=== PATIENT | female | born 1985 | race Hispanic/Latino ===

== ENCOUNTER 2022-09-21 11:22 | Emergency (ER) | payer SELFPAY ==
--- OUTSIDE RECORDS SUMMARY | 2022-09-21 11:26 | XMS REPORT | Continuity of Care Document ---
:[address] [facility] t Address [address] [facility]. [address] [place] [address] Care Team Providers Name Role Phone Srinivas Moses Primary Care Physician [phone] CRISTAL BARRETO Attending Clinician Unavailable Cristal Yañez Attending Clinician [phone] RONALDO FREDERICK Attending Clinician Unavailable Delgado Abbasi MD Attending Clinician Shola Lion MD Attending Clinician Doctor Unassigned, [place] Attending Clinician Unavailable FERNY TONG Attending Clinician Unavailable Ferny Tong MD Attending Clinician SRINIVAS SEO Attending Clinician Unavailable Lab, [facility] Attending Clinician Unavailable Srinivas Moses Attending Clinician ALBERT CARDOSO Attending Clinician Unavailable ALBERT CARDOSO Attending Clinician Unavailable Provider, [facility] Temp Attending Clinician Unavailable 5, [facility] Attending Clinician Unavailable Radha Taylor MD Attending Clinician RADHA TAYLOR Attending Clinician Unavailable RADHA TAYLOR Attending Clinician Unavailable JOHN HELLER Attending Clinician Unavailable UNKNOWN, ATTENDING Attending Clinician Unavailable RONALDO FREDERICK Admitting Clinician Unavailable FERNY TONG Admitting Clinician Unavailable Ferny Tong MD Admitting Clinician Payers Payer Name Policy Type Policy Number Effective Date Expiration Date S ource [employer]ILY [employer]ING [id number] 2022 [place] 0-100% 00:00:00 JUAN ALBERTO MOM CHIP [id number] 2022 JAMES LOW FPL 00:00:00 TMHP [id number] 2022 2022 EMERGENCY 00:00:00 00:00:00 MEDICAID Problems Condition Condition Condition Status Onset Resolution Last Treating Co mments Source Name Details Category Date Date Treatment Clinician Date Other Other Disease Active 2021-07 Univers general general 0-17 [place]y of counseling [place] and advice and advice 00 Md dical for [facility] Branch contracept contracept inels niels management management Well woman Well woman Disease Active U nivers exam exam 9-19 ity of 00:00: [place] 00 [facility] Disease Active Univers (spontaneo (spontaneo 8-16 it y of us vaginal [place] vaginal [place] delivery[place] delivery[place] 00 [facility] Single Single Disease Active Univers live live 8-16 it y of 00:00: [facility] Acute Acute Disease Active Univers blood loss blood loss 8-16 it y of anemia anemia 00:00: [facility] Obesity Obesity Disease Active Univers (BMI (BMI 8-14 ity of 30-39.9) 30-39.9) 00:00: 00 [facility] 37 weeks 37 weeks Disease Active Unive rs gestation gestation 8-12 ity of of of 00:00: [place] 00 [facility] Heartburn Heartburn Disease Active Uni vers during during 8-04 [place] [facility] Supervisio Supervisio Disease Active U nivers n of n of 7-08 ity of high-risk high-risk 00:[place] [facility] Obesity in Obesity in Disease Active U nivers 7-08 ity of 00:00: [place] 00 [facility] Multiparit Multiparit Disease Active U nivers y y 7-08 ity of 00:00: [place] [facility] Cervical Cervical Disease Active Overview: Un lorenza Papanicola Papanicola 01-23 Formattin ity of ou smear ou smear 00:00: g of this [place] negative negative 00 note Medica l within within might be Branch last 12 last 12 different months months from the original. 04/2021 NIL pap with neg hpv. See care everywher e Pruritus Pruritus Disease Active Unive rs 7-08 ity of 00:00: [place] 00 Medical Branch Pain of Pain of Disease Active Univers round round 01-23 ity of ligament ligament 00:00: [place] during during 00 Medical Bran ch Allergies, Adverse Reactions, Alerts Allergy Allergy Status Severity Reaction(s) Onset Inactive Treating Comm ents Source Name Type Date Date Clinician NO KNOWN Drug Active Univers ALLERGIE Class ity of S [facility] Social History Social Habit Start Date Stop Date Quantity Comments Source ASSERTION 2021-06-26 [facility] 00:00:00 [facility] Alcohol intake 2022-05-04 2022-05-04 Ex-drinker [facility] 00:00:00 00:00:00 (finding) [facility] Exposure to 2022-03-27 2022-04-06 Not sure [facility] SARS-CoV-2 00:00:00 13:08:00 [facility] (event) [place] Tobacco use and 2022-02-19 2022-02-19 Smokeless tobacco Un iversity of exposure 00:00:00 00:00:00 non-user [facility] Sex Ass[birth year] At [birth year] Universit y of 00:00:00 00:00:00 [facility] Smoking Status Start Date Stop Date Source Never smoked tobacco [facility] [place] Medications Ordered Filled Start Stop Current Ordering Indication Dosage Frequency Signature Comments Components Source Medication Medication Date Date Medication? Clinician (SIG) Name Name Yes [id number] 1{tbl} Take 1 Univers [id number] 8-16 tablet by ity of fum-folic 00:[place] the Medical 27 mg iron- morning. Bran ch 1 mg folic tablet docusate Yes [id number] 200mg Take 2 U nivers 100 mg 8-16 capsules ity of capsule 00:00: by mouth [place] 00 once daily Medical as needed Branch for Constipati on. ferrous Yes [id number] 325mg Take 1 Un lorenza sulfate 325 8-16 tablet by ity of mg (65 mg 00:00: [place] iron) 00 the Medical tablet morning Branch and 1 tablet in the evening. ibuprofen 0 Yes [id number] 600mg Take 1 Univers 600 mg 8-16 tablet by ity of tablet 00:00: mouth [place] 00 every 6 Medical (six) Branch hours as needed (Pain). Take with food or milk. 0 Yes [id number] 1{tbl} Take 1 Univers [id number] 8-16 tablet by ity of fum-folic 00:00: [place] () 00 the Medical 27 mg iron- morning. Bran ch 1 mg folic tablet docusate 0 Yes [id number] 200mg Take 2 U nivers 100 mg 8-16 capsules ity of capsule 00:00: by mouth [place] 00 once daily Medical as needed Branch for Constipati on. ferrous 0 Yes [id number] 325mg Take 1 Un lorenza sulfate 325 8-16 tablet by ity of mg (65 mg 00:00: [place] iron) 00 the Medical tablet morning Branch and 1 tablet in the evening. ibuprofen 0 Yes [id number] 600mg Take 1 Univers 600 mg 8-16 tablet by ity of tablet 00:00: mouth [place] 00 every 6 Medical (six) Branch hours as needed (Pain). Take with food or milk. 0 Yes [id number] 1{tbl} Take 1 Univers [id number] 8-16 tablet by ity of fum-folic 00:00: [place] () 00 the Medical 27 mg iron- morning. Bran ch 1 mg folic tablet docusate 0 Yes [id number] 200mg Take 2 U nivers 100 mg 8-16 capsules ity of capsule 00:00: by mouth [place] 00 once daily Medical as needed Branch for Constipati on. ferrous 0 Yes [id number] 325mg Take 1 Un lorenza sulfate 325 8-16 tablet by ity of mg (65 mg 00:00: [place] iron) 00 the Medical tablet morning Branch and 1 tablet in the evening. ibuprofen 0 Yes [id number] 600mg Take 1 Univers 600 mg 8-16 tablet by ity of tablet 00:00: mouth [place] 00 every 6 Medical (six) Branch hours as needed (Pain). Take with food or milk. Yes [id number] 1{tbl} Take 1 Univers [id number] 8-16 tablet by ity of fum-folic 00:00: mouth in [facility] s ([facility]) 00 the Medical 27 mg iron- morning. Bran ch 1 mg folic tablet docusate Yes [id number] 200mg Take 2 U nivers 100 mg 8-16 capsules ity of capsule 00:00: by mouth [place] 00 once daily Medical as needed Branch for Constipati on. ferrous Yes [id number] 325mg Take 1 Un lorenza sulfate 325 8-16 tablet by ity of mg (65 mg 00:00: mouth in [facility] iron) 00 the Medical tablet morning Branch and 1 tablet in the evening. ibuprofen Yes [id number] 600mg Take 1 Univers 600 mg 8-16 tablet by ity of tablet 00:00: mouth [place] 00 every 6 Medical (six) Branch hours as needed (Pain). Take with food or milk. Yes [id number] 1{tbl} Take 1 Univers [id number] 8-16 tablet by ity of fum-folic 00:00: mouth in [facility] ([facility]) 00 the Medical 27 mg iron- morning. Bran ch 1 mg folic tablet docusate Yes [id number] 200mg Take 2 U nivers 100 mg 8-16 capsules ity of capsule 00:00: by mouth [place] 00 once daily Medical as needed Branch for Constipati on. ferrous Yes [id number] 325mg Take 1 Un lorenza sulfate 325 8-16 tablet by ity of mg (65 mg 00:00: mouth in [facility] iron) 00 the Medical tablet morning Branch and 1 tablet in the evening. ibuprofen Yes [id number] 600mg Take 1 Univers 600 mg 8-16 tablet by ity of tablet 00:00: mouth [place] 00 every 6 Medical (six) Branch hours as needed (Pain). Take with food or milk. rho(D) Yes 300ug 300 mcg, Univer s immune 8-15 Intramuscu ity of globulin 18:28: lar, ONCE, [place] (RHOGAM) 05 For 1 Medical syringe 300 dose, Branch mcg Conditiona l, Routine HYDROcodone 2021-0 Yes 1{tbl} 1 tablet, Univers -acetaminop 8-15 Oral, ity of hen (NORCO 18:28: Q6HPRN, [place] 5) 5-325 mg 02 Starting Medi leanna tablet 1 on Wed Branch tablet 03/02/22 at 1328, Until Discontinu ed, Routine, Pain (scale 7-10) ibuprofen 2021-0 Yes 600mg 600 mg, Univ ers (IBU) 8-15 Oral, ity of tablet 600 18:28: Q6HPRN, [place] mg 01 Starting Medical on Wed Branch 03/02/22 at 1328, Until Discontinu ed, Routine, Pain (scale 4-6) acetaminoph 2021-0 Yes 650mg 650 mg, Un lorenza en 8-15 Oral, ity of (TYLENOL) 18:28: Q6HPRN, [place] tablet 650 01 Starting Medic al mg on Wed Branch 03/02/22 at 1328, Until Discontinu ed, Routine, Pain (scale 1-3) diphenhydrA 2021-0 Yes 25mg 25 mg, Univ ers MINE 8-15 Oral, ity of (BENADRYL) 18:28: Q6HPRN, [place] tablet 25 01 Starting Medica l mg on Wed Branch 03/02/22 at 1328, Until Discontinu ed, Routine, Sleep, Itching ondansetron 2021-0 Yes 4mg 4 mg, Slow Univers (ZOFRAN 8-15 IV Push, ity of (PF)) 18:28: Q8HPRN, [place] injection 4 01 Starting Medi leanna mg on Wed Branch 03/02/22 at 1328, Until Discontinu ed, Routine, Nausea and Vomiting (N/V) simethicone 2021-0 Yes 160mg 160 mg, Un lorenza (GAS RELIEF 8-15 Oral, ity of (SIMETHICON 18:28: PC+HSPRN, [place] E)) 01 Starting Medical chewable on Wed Branch tablet 160 03/02/22 at mg 1328, Until Discontinu ed, Routine, Gas docusate 2021-0 Yes 200mg 200 mg, Unive rs (COLACE) 8-15 Oral, ity of capsule 200 18:28: QDAILYPRN, [place] mg 01 Starting Medical on Wed Branch 03/02/22 at 1328, Until Discontinu ed, Routine, Constipati on magnesium Yes 30mL 30 mL, Univer s hydroxide 03-02 Oral, ity of (MILK OF 18:28: QDAILYPRN, [place] MAGNESIA) 01 Starting Medica l 400 mg/5 mL on Wed Branch suspension 03/02/22 at 30 mL 1328, Until Discontinu ed, Routine, Constipati on benzocaine- Yes Topical, Un lorenza menthol 03-02 PRN, ity of (DERMOPLAST 18:28: Starting [place] ) 20-0.5 % 01 on Wed Medical topical 03/02/22 at Branch spray 1328, Until Discontinu ed, Routine, Perineum discomfort ropivacaine 2021- No Epidural, Univers 0.2 % 03-02 ONCE INTRA ity of (NAROPIN 13:20: 16:23 PROCEDURE, [place] (PF)) 00 :41 Starting Medical epidural on Wed [place] infusion 03/02/22 at 0820, Until Wed03/02/22 at 1123, Routine, Intra-op lidocaine-e 2021- No Epidural, Univers pinephrine 03-02 ONCE INTRA it y of (XYLOCAINE 13:15: 16:23 PROCEDURE, [place] W/EPINEPHRI 00 :41 Starting Medi leanna NE) 1.5 on Wed [place] %-1:200,000 03/02/22 at injection 0815, Until Wed03/02/22 at 1123, Routine, Intra-op butorphanol 2021- No 1mg 1 mg, IV U nivers (STADOL) 03-02 Push, ity of injection 1 11:45: 10:45 ONCE, 1 [place] mg 00 :00 dose, On Medical [facility] Branch 03/02/22 at 0645, Routine sodium 2021- No 30mL 30 mL, Univers citrate-cit 03-02 Oral, ity of hermelinda acid 11:44: 12:40 PRE-PROCED [place] (BICITRA) 14 :00 URE ONCE, Medic al 500-334 1 dose, Branch mg/5 mL Starting solution 30 on Mon mL 03/02/22 at 0644, Until 03/02/22 at 0740, Routine, Surgery/Pr ocedure [id number] IV 2021- No 1000mL at 125 Uni vers infusion 03-01 08-15 mL/hr, IV ity o f 1,000 mL 23:00: 18:28 Infusion, [place] 00 :04 CONTINUOUS Medical , Starting Branch on 03/01/22 at 1800, Until 03/02/22 at 1328, Routine PNV 67-iron Yes [id number] 1{each} Take 1 Univers ps-folate 7-08 Each by ity of no.1-dha 00:00: mouth [place] (VITAFOL 00 daily. Medical ULTRA) 29 Branch mg iron- 1 mg-200 mg Cap PNV 67-iron Yes [id number] 1{each} Take 1 Univers ps-folate 7-08 Each by ity of no.1-dha 00:00: mouth [place] (VITAFOL 00 daily. Medical ULTRA) 29 Branch mg iron- 1 mg-200 mg Cap PNV 67-iron Yes [id number] 1{each} Take 1 Univers ps-folate 7-08 Each by ity of no.1-dha 00:00: mouth [place] (VITAFOL 00 daily. Medical ULTRA) 29 Branch mg iron- 1 mg-200 mg Cap PNV 67-iron Yes [id number] 1{each} Take 1 Univers ps-folate 7-08 Each by ity of no.1-dha 00:00: mouth [place] (VITAFOL 00 daily. Medical ULTRA) 29 Branch mg iron- 1 mg-200 mg Cap PNV 67-iron Yes [id number] 1{each} Take 1 Univers ps-folate 7-08 Each by ity of no.1-dha 00:00: mouth [place] (VITAFOL 00 daily. Medical ULTRA) 29 Branch mg iron- 1 mg-200 mg Cap PNV 67-iron 0 2021- No [id number] 1{each} Take 1 Univers ps-folate 7-08 08-16 Each by ity of no.1-dha 00:00: 00:00 mouth [place] (VITAFOL 00 :00 daily. Medical ULTRA) 29 Branch mg iron- 1 mg-200 mg Cap Immunizations Ordered Filled Immunization Date Status Comments Sourc e Immunization Name Name TDAP 2022-01-23 Completed University of 00:00:00 [place] [facility] TDAP 2022-01-23 Completed University of 00:00:00 [place] [facility] TDAP 2022-01-23 Completed University of 00:00:00 [place] [facility] TDAP 2022-01-23 Completed University of 00:00:00 [place] [facility] TDAP 2022-01-23 Completed University of 00:00:00 [place] [facility] TDAP 2022-01-23 Completed University of 00:00:00 [place] [facility] TDAP 2022-01-23 Completed University of 00:00:00 [facility] Branch TDAP 2022-01-23 Completed University of 00:00:00 [place] [facility] TDAP 2022-01-23 Completed University of 00:00:00 [facility] Branch TDAP 2022-01-23 Completed University of 00:00:00 [facility] Vital Signs Vital Name Observation Time Observation Value Comments Source Systolic blood 2022-05-04 16:29:00 121 mm[Hg] Univer sity of pressure [facility] Diastolic blood 2022-05-04 16:29:00 78 mm[Hg] Unive rsity of [facility] Heart rate 2022-05-04 16:29:00 64 /min [facility] Body temperature 2022-05-04 16:29:00 36.44 Ana M [facility] Respiratory rate 2022-05-04 16:29:00 20 /min [facility] Body height 2022-05-04 16:29:00 160 cm [facility] Body weight 2022-05-04 16:29:00 78.744 kg [facility] BMI 2022-05-04 16:29:00 30.75 kg/m2 [facility] Systolic blood 2022-04-06 18:09:00 119 mm[Hg] Univer sity of pressure [facility] Diastolic blood 2022-04-06 18:09:00 73 mm[Hg] Unive rsity of pressure [facility] Heart rate 2022-04-06 18:09:00 67 /min [facility] Body temperature 2022-04-06 18:09:00 36.89 Ana M Univ ersity of [place] [facility] Respiratory rate 2022-04-06 18:09:00 16 /min Univ ersity of [place] [facility] Body height 2022-04-06 18:09:00 160 cm Universi ty of [place] [facility] Body weight 2022-04-06 18:09:00 78.047 kg Universi ty of [place] [facility] BMI 2022-04-06 18:09:00 30.48 kg/m2 Universi ty of [place] [facility] Systolic blood 2022-03-03 14:34:00 126 mm[Hg] Univer sity of pressure [place] [facility] Diastolic blood 2022-03-03 14:34:00 77 mm[Hg] Unive rsity of pressure [place] [facility] Heart rate 2022-03-03 14:34:00 64 /min Universi ty of [place] [facility] Body temperature 2022-03-03 14:34:00 36.56 Ana M Univ ersity of [place] [facility] Respiratory rate 2022-03-03 14:34:00 18 /min Univ ersity of [place] [facility] Oxygen saturation in 2022-03-03 14:34:00 98 /min University of Arterial blood by [place] [employer] leanna Pulse oximetry Branch Body height 2022-03-01 21:00:00 160 cm Universi ty of [place] [facility] Body weight 2022-03-01 21:00:00 86.592 kg Universi ty of [place] [facility] BMI 2022-03-01 21:00:00 33.82 kg/m2 Universi ty of [place] [facility] Heart rate 2022-02-28 01:30:00 76 /min Universi ty of [place] [facility] Oxygen saturation in 2022-02-28 01:30:00 100 /min University of Arterial blood by [employer] leanna Pulse oximetry Branch Systolic blood 2022-02-27 23:30:00 113 mm[Hg] Univer sity of pressure [place] [facility] Diastolic blood 2022-02-27 23:30:00 70 mm[Hg] Unive rsity of pressure [place] [facility] Respiratory rate 2022-02-27 23:30:00 18 /min Univ ersity of [place] [facility] Body temperature 2022-02-27 22:24:00 36.72 Ana M Univ ersity of [place] [facility] Body height 2022-02-27 22:24:00 160 cm [facility] Body weight 2022-02-27 22:24:00 87.771 kg [facility] BMI 2022-02-27 22:24:00 34.28 kg/m2 [facility] Systolic blood 2022-02-26 21:05:00 106 mm[Hg] Univer sity of pressure [facility] Diastolic blood 2022-02-26 21:05:00 68 mm[Hg] [place] [facility] 2022-02-26 21:05:00 76 /min [facility] Body temperature 2022-02-26 21:05:00 36.44 Ana M [facility] 2022-02-26 21:05:00 20 /min [facility] Body height 2022-02-26 21:05:00 160 cm [facility] Body weight 2022-02-26 21:05:00 87.091 kg [facility] BMI 2022-02-26 21:05:00 34.01 kg/m2 [facility] Procedures Procedure Date / Time Performing Clinician Source Performed CBC WITH DIFF 2022-05-04 17:00:00 Cristal Barreto [facility] CBC WITH DIFF 2022-03-03 09:13:00 Urvashi Patterson [facility] [place] VENOUS CORD GAS 2022-03-02 14:29:00 Lexa [facility] CENTRAL NEURAXIAL BLOCK 2022-03-02 13:25:58 Delgado [facility] CBC WITH DIFF 2022-03-01 23:41:00 Lexa Tami [facility] HEPATITIS B SURFACE 2022-03-01 23:41:00 Tami Lindquist [facility] ANTIGEN [facility] HIV 1/2 AG-AB WITH REFLEX 2022-03-01 23:41:00 Tami [facility] GALV ONLY - [place] 2022-03-01 23:41:00 Tami Lindquist [facility] IGG/IGM [facility] HB ABO GROUPING 2022-03-01 23:12:00 Tami Lindquist [place] o f [facility] RHO (D) IMMUNE GLOBULIN 2022-03-01 23:12:00 Urvashi Patterson [facility] COVID-19 (ID NOW RAPID 2022-03-01 21:52:00 Ronaldo Frederick [facility] TESTING) [facility] LAB ONLY COVID 2022-03-01 21:52:00 Otoniel, [facility] o [facility] INTERPRETATION [facility] HOSPITAL ADMISSION 2022-03-01 05:01:00 Doctor Unassigned, [facility] [place] [facility] POCT URINALYSIS 2022-02-26 21:07:00 Cristal Barreto [facility] Encounters Start End Encounter Admission Attending Care Care Encounter Source Date/Time Date/Time Type Type Clinicians Facility Department ID 2022-05-04 2022-05-04 Outpatient Cooper BARRETO, [facility] [id number] Univers 10:00:00 12:01:07 CRISTAL fuentes [facility] 2022-05-04 2022-05-04 Office Estevan, [facility] [id number] Univers 10:00:00 12:01:07 Visit Cristal Crawford 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 [id number] [id number] [place] MATERNAL [id number] [facility] ical & CHILD [address] [place] [address] 2022-05-04 2022-05-04 Outpatient R ESTEVAN, [facility] [id number] Univers 09:30:00 10:48:08 CRISTAL fuentes [facility] 2022-04-27 2022-04-27 Outpatient R ESTEVAN, [facility] [id number] Univers 10:45:00 10:45:00 CRISTAL fuentes [facility] 2022-04-27 2022-04-27 Outpatient R ESTEVAN, [facility] [id number] Univers 10:15:00 10:15:00 CRISTAL fuentes [facility] 2022-04-06 2022-04-06 [facility] [id number] Univers 12:45:00 13:34:57 CRISTAL ity o f [facility] 2022-04-06 2022-04-06 [facility] [id number] Univers 12:45:00 13:34:57 Cristal Ty 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 [id number] ity of Visit [facility] 4.2.7.2.686 [place] MATERNAL [id number] Med ical & CHILD [address] [place] [address] 2022-03-31 2022-03-31 Out[facility] [id number] Univers 11:00:00 11:00:00 CRISTAL guerray o f [facility] 2022-03-01 2022-03-03 Inpatient P OTONIEL [facility] KEESHA [id number] Univers 16:22:00 18:17:00 [facility]22-03-01 2022-03-03 Hospital HELEN Frederick [id number] Univers 16:22:00 18:17:00 Encounter Ronaldo VIJI 350.1.13.10 ity of HOSPITAL 4.2.7.2.686 [place] [id number] [facility] 133 Branch 2022-03-02 2022-03-02 Anesthesia Delgado Abbasi [id number] Univers 07:45:00 11:23:00 Event Shola LionY 350.1.13.10 ity of HOSPITAL 4.2.7.2.686 [place] [id number] [facility] 132 Branch 2022-03-01 2022-03-01 Orders Doctor HELEN [id number] Univers 00:00:00 00:00:00 Only Unassigned, VIJI 350.1.13.10 ity of [place] [facility] 4.2.7.2.686 [place] [id number] [facility] 009 Branch 2022-02-27 2022-02-27 Outpatient P SOLIS [facility] KEESHA [id number] Univers 16:52:00 21:08:00 FERNY fuentes [facility] 2022-02-27 2022-02-27 Hospital HELEN Tong [id number] Univers 16:52:00 21:08:00 Encounter Ferny HALLMAN 350.1.13.10 ity of HOSPITAL 4.2.7.2.686 [place] [id number] [address] 2022-02-26 2022-02-26 Outpatient [facility] [id number] Univers 15:45:00 16:27:48 CRISTAL guerray o f [facility] 2022-02-26 2022-02-26 Routine [facility] [id number] Univers 15:45:00 16:27:48 Cristal Ty 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 350.1.13.10 ity of Visit [facility] 4.2.7.2.686 [place] MATERNAL [id number] Med ical & CHILD [address] [place] [address] 2022-02-26 2022-02-26 Outpatient [facility] [id number] Univers 15:45:00 15:45:00 CRISTAL fuentes o f [facility] 2022-02-20 2022-02-20 Outpatient R GABBI [facility] [id number] Univers 13:30:00 13:30:00 SRINIVAS fuentes o henri [facility] 2022-02-20 2022-02-20 Film Sound Coordinator Lab, [facility] 1.2.840. [id number] Univers 13:30:00 13:30:00 Visit Srinivas Seo 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 350.1.13.10 ity of [facility] 4.2.7.2.686 [place] MATERNAL [id number] [facility] ical & CHILD [address] [place] [address] 2022-02-20 2022-02-20 Telephone [facility] [id number] Univers 00:00:00 00:00:00 Cristal Ty 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 350.1.13.10 ity of [facility] 4.2.7.2.686 [place] MATERNAL [id number] [facility] ical & CHILD [address] [place] [address] 2022-02-19 2022-02-19 [facility] [id number] Univers 15:45:00 16:42:41 Cristal Crawford 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 350.1.13.10 ity of Visit [facility] 4.2.7.2.686 [place] MATERNAL [id number] [facility] & [address] 2022-02-19 2022-02-19 Outpatient R ESTEVAN [facility] [id number] Univers 15:45:00 16:42:41 CRISTAL álvarez [facility] 2022-02-19 2022-02-19 Outpatient R ESTEVAN [facility] [id number] Univers 15:45:00 16:42:41 CRISTAL álvarez [facility] 2022-02-05 2022-02-05 Outpatient R [facility] [id number] Univers 15:00:00 16:19:03 ALBERT CARDOSO [facility] 2022-02-05 2022-02-05 Routine Provider, AlexRmchtorin [facility] 1 .2.840.114 [id number] Univers 15:00:00 16:19:03 Albert Cardoso 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 350.1.13.10 ity of Visit [facility] 4.2.7.2.686 [place] as MATERNAL [phone] [facility] & [address] 2022-02-02 2022-02-02 Film Sound Coordinator 5, [facility] Room UNIVERSIT 1 .2.840.114 [id number] Univers 10:15:00 12:14:02 Visit Radha Taylor [facility] 350.1.13.10 ity of [place] [phone] [address] 2022-02-02 2022-02-02 Outpatient P RADHA TAYLOR [facility] [id number] Univers 10:15:00 10:15:00 RADHA TAYLOR [facility] 2022-02-02 2022-02-02 Abstract Estevan [facility] 1.2.840.114 [id number] Univers 00:00:00 00:00:00 Cristal Crawford 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 350.1.13.10 ity of [facility] 4.2.7.2.686 [place] as MATERNAL [id number] [facility] & [address] 2022-01-26 2022-01-26 Outpatient R [facility] [id number] Univers 15:00:00 15:00:00 CRISTAL kaminski [facility] 2022-01-26 2022-01-26 Film Sound Coordinator Lab, [facility] 1.2.840. 114 [id number] Univers 08:15:00 09:30:33 Visit Srinivas Seo 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 350.1.13.10 ity of [facility] 4.2.7.2.686 [place] MATERNAL [id number] [address] 2022-01-26 2022-01-26 Outpatient R [facility] [id number] Univers 08:15:00 08:15:00 SRINIVAS kaminski [facility] 2022-01-26 2022-01-26 Orders Doctor HELEN 1.2.840.114 [id number] Univers 00:00:00 00:00:00 Only Unassigned, VIJI 350.1.13.10 ity of [place] [facility] 4.2.7.2.686 [place] as [id number] [address] 2022-01-26 2022-01-26 [facility] 1.2.840.114 [id number] Univers 00:00:00 00:00:00 Cristal Crawford 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 350.1.13.10 ity of [facility] 4.2.7.2.686 [place] as MATERNAL [id number] [facility] & [address] 2022-01-23 2022-01-23 Outpatient R [facility] [id number] Univers 12:45:00 15:50:02 CRISTAL kaminski [facility] 2022-01-23 2022-01-23 [facility] 1.2.509.559 [id number] Univers 12:45:00 15:50:02 Cristal Ty 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 350.1.13.10 ity of Visit REGIONAL 4.2.7.2.686 [place] MATERNAL [phone] Med ical & CHILD [address] [place] [address] 2022-01-23 2022-01-23 Outpatient R PINA, [facility] [id number] Univers 14:30:00 14:30:00 [facility]22-[facility]-16 2022-01-16 Outpatient R UNKNOWN, [facility] [id number] Univers 15:00:00 15:00:00 [facility] 2021-12-24 2021-12-24 Outpatient R GABBI, [facility] [id number] Univers 13:30:00 13:30:00 SIRNIVAS fuentes o f [facility] Results Test Description Test Time Test Comments Results Result Comments Source CBC WITH DIFF 2022-05-05 05:06:13 Test Item Value Reference Range Interpretation Comme nts WBC (test code = 6690-2) See_Comment [A utomated message] The system which generated this result transmitted ref erence range: 4.30 - 11.10 10*3/?L . The reference range was not u sed to interpret this result as normal/abnormal. RBC (test code = 789-8) See_Comment [Au tomated message] The system which generated this result transmitted ref erence range: 3.93 - 5.25 10*6/?L. The reference range was not u sed to interpret this result as normal/abnormal. HGB (test code = 718-7) 13.0 g/dL 11.6-15 HCT (test code = 4544-3) 40.3 % 35.7-45.2 MCV (test code = 787-2) 85.7 fL 80.6-95.5 MCH (test code = 785-6) 27.7 pg 25.9-32.8 MCHC (test code = 786-4) 32.3 g/dL 31.6-35.1 RDW-SD (test code = 46.4 fL 39-49.9 99848-2) RDW-CV (test code = 14.7 % 12-15.5 788-0) PLT (test code = 777-3) See_Comment [Au tomated message] The system which generated this result transmitted ref erence range: 166 - 358 10*3/?L. The reference range was not u sed to interpret this result as normal/abnormal. MPV (test code = 19578-6) 12.4 fL 9.5-12.9 NRBC/100 WBC (test code = See_Comment [ Automated message] The system [id number]) which generated this result transmitted ref erence range: 0.0 - 10.0 /100 WBC s. The reference range was not u sed to interpret this result as normal/abnormal. NRBC x10^3 (test code = See_Comment [Au tomated message] The system 3029182174) which generated this result transmitted ref erence range: 10*3/?L. The re ference range was not used to int erpret this result as normal/abnor mal. GRAN MAT (NEUT) % (test 57.1 % code = 770-8) IMM GRAN % (test code = 0.20 % 9539771697) LYMPH % (test code = 34.2 % 736-9) MONO % (test code = 6.5 % 5905-5) EOS % (test code = 713-8) 1.7 % BASO % (test code = 0.3 % 706-2) GRAN MAT x10^3(ANC) (test 5.07 10*3/uL 1.88-7.09 code = 1751962734) IMM GRAN x10^3 (test code 0-0.06 = 7163031183) LYMPH x10^3 (test code = 3.04 10*3/uL 1.32-3.29 731-0) MONO x10^3 (test code = 0.58 10*3/uL 0.33-0.92 742-7) EOS x10^3 (test code = 0.15 10*3/uL 0.03-0.39 711-2) BASO x10^3 (test code = 0.03 10*3/uL 0.01-0.07 704-7) [facility] WITH [id number] 05:06:13 Test Item Value Reference Range Interpretation Comments WBC (test code = See_Comment [Automated message] 6690-2) The system [employer] generated this result transmitted ref erence range: 4.30 - 1 1.10 10*3/?L. The re ference range was not u sed to interpret this result as normal/abnor mal. RBC (test code = See_Comment [Automated message] 139-8) The system [employer] generated this result transmitted ref erence range: 3.93 - 5 .25 10*6/?L. The re ference range was not u sed to interpret this result as normal/abnor mal. HGB (test code = 13.0 g/dL 11.6-15 718-7) HCT (test code = 40.3 % 35.7-45.2 4544-3) MCV (test code = 85.7 fL 80.6-95.5 787-2) MCH (test code = 27.7 pg 25.9-32.8 785-6) MCHC (test code = 32.3 g/dL 31.6-35.1 786-4) RDW-SD (test code 46.4 fL 39-49.9 = 78393-7) RDW-CV (test code 14.7 % 12-15.5 = 788-0) PLT (test code = See_Comment [Automated message] 877-3) The system [employer] generated this result transmitted ref erence range: 166 - 35 8 10*3/?L. The re ference range was not u sed to interpret this result as normal/abnor mal. MPV (test code = 12.4 fL 9.5-12.9 34988-6) NRBC/100 WBC (test See_Comment [Automat ed message] code = 2698504423) The syste m which generated this result transmitted ref erence range: 0.0 - 10 .0 /100 WBCs. The refer ence range was not u sed to interpret this result as normal/abnor mal. NRBC x10^3 (test See_Comment [Automated message] code = 6912642204) The syste m which generated this result transmitted ref erence range: 10*3/?L. The reference range was not used to interpr et this result as normal/abnormal . GRAN MAT (NEUT) % 57.1 % (test code = 770-8) IMM GRAN % (test 0.20 % code = 7166581445) LYMPH % (test code 34.2 % = 736-9) MONO % (test code 6.5 % = 5905-5) EOS % (test code = 1.7 % 713-8) BASO % (test code 0.3 % = 706-2) GRAN MAT 5.07 10*3/uL 1.88-7.09 x10^3(ANC) (test code = 1372617621) IMM GRAN x10^3 0-0.06 (test code = 0793062078) LYMPH x10^3 (test 3.04 10*3/uL 1.32-3.29 code = 731-0) MONO x10^3 (test 0.58 10*3/uL 0.33-0.92 code = 742-7) EOS x10^3 (test 0.15 10*3/uL 0.03-0.39 code = 711-2) BASO x10^3 (test 0.03 10*3/uL 0.01-0.07 code = 704-7) [facility] with [id number] 09:45:39 Test Item Value Reference Range Interpretation Comments WBC (test code = See_Comment H [Automated 8190-2) message] The sy stem which generated this result transmitted reference range : 4.30 - 11.10 10*3/?L. The reference range was not used to interpret this result as normal/abnormal . RBC (test code = See_Comment L [Automated 309-8) message] The sy stem which generated this result transmitted reference range : 3.93 - 5.25 10*6/?L. The reference range was not used to interpret this result as normal/abnormal . HGB (test code = 9.8 g/dL 11.6-15 L 718-7) HCT (test code = 28.9 % 35.7-45.2 L 4544-3) MCV (test code = 83.5 fL 80.6-95.5 787-2) MCH (test code = 28.3 pg 25.9-32.8 785-6) MCHC (test code = 33.9 g/dL 31.6-35.1 786-4) RDW-SD (test code = 43.7 fL 39-49.9 51481-5) RDW-CV (test code = 14.4 % 12-15.5 788-0) PLT (test code = See_Comment [Automated 777-3) message] The sy stem which generated this result transmitted reference range : 166 - 358 10*3/ ?L. The reference r xavier was not used to interpret this result as normal/abnormal . MPV (test code = 12.9 fL 9.5-12.9 32210-0) NRBC/100 WBC (test See_Comment [Automat ed code = 3333856994) message] The system which generated this result transmitted reference range : 0.0 - 10.0 /100 WBCs. The refer ence range was not u sed to interpret th is result as normal/abnormal . NRBC x10^3 (test code See_Comment [Auto mated = 0409322135) message] The s ystem which generated this result transmitted reference range : 10*3/?L. The reference range was not used to interpret this result as normal/abnormal . GRAN MAT (NEUT) % 67.1 % (test code = 770-8) IMM GRAN % (test code 0.40 % = 6374475366) LYMPH % (test code = 22.8 % 736-9) MONO % (test code = 8.9 % 5905-5) EOS % (test code = 0.6 % 713-8) BASO % (test code = 0.2 % 706-2) GRAN MAT x10^3(ANC) 8.95 10*3/uL 1.88-7.09 H (test code = 8384352072) IMM GRAN x10^3 (test 0.06 10*3/uL 0-0.06 code = 9176105354) LYMPH x10^3 (test code 3.05 10*3/uL 1.32-3.29 = 731-0) MONO x10^3 (test code 1.19 10*3/uL 0.33-0.92 H = 742-7) EOS x10^3 (test code = 0.08 10*3/uL 0.03-0.39 711-2) BASO x10^3 (test code 0.03 10*3/uL 0.01-0.07 = 704-7) Lab Interpretation Abnormal (test code = 39016-8) [facility] IMMUNE [id number] 18:29:04 Test Item Value Reference Range Interpretation Comments RHIG CANDIDATE? No- see comment Patient i s not a (test code = candidate for R hIg- 5055) Patient is Rh Positive.Perfor med at [facility] Laboratory Services - [facility] Blood [address] [place] [address]Sjzn Free: [phone] A No. [id number] [facility] - SYPHILIS [id number] 15:48:23 Test Item Value Reference Range Interpretation Comments Syphilis IgG/IgM (test Non-reactive Non-reactive code = 26113-3) LEAH (test code = LEAH) Non-reactive - No serologic evidence of T. pallidum infection. Cannot exclude incubating or early syphilis. Submit a second specimen in 2-4 weeks if syphilis is clinically suspected. Equivocal - Further testing to follow. Reactive - Further testing to follow. Lab Interpretation (test Normal code = 90658-1) [facility] Texas[facility]TER[facility] CORD [id number] 14:42:33 Test Item Value Reference Range Interpretation Comments BASE EXCESS, CORD mEq/L QUES (test code = 7586805217) AC PH, CORD (BEAKER) 7.18-7.38 (test code = 2042890763) PC02, CORD (test code See_Comment [Auto mated message] The = 0851853083) system which g enerated this result transmit noah reference range : 32 - 66 mmHg. The refer ence range was not used to interpret this result as normal/abnormal . PO2, CORD (test code See_Comment [Autom ated message] The = 5278209827) system which g enerated this result transmit noah reference range : 10 - 30 mmHg. The refer ence range was not used to interpret this result as normal/abnormal . BICARBONATE, CORD See_Comment [Automate d message] The (test code = system which ge nerated this 7498973640) result transmit noah reference range : 17 - 27 mEq/L. The refe rence range was not used to interpret this result as normal/abnormal . [facility] CORD [id number] 14:42:18 Test Item Value Reference Range Interpretation Comments VENOUS BASE EXCESS, mEq/L CORD (test code = 0976437925) VENOUS PH, CORD (test 7.25-7.45 code = 5436790226) VENOUS PC02, CORD See_Comment [Automate d message] The (test code = system which ge nerated 2159741724) this result tra nsmitted reference range : 27 - 49 mmHg. The refer ence range was not used to interpret this result as normal/abnormal . VENOUS PO2, CORD (test See_Comment [Aut omated message] The code = 5710388700) system wh ich generated this result tra nsmitted reference range : 17 - 41 mmHg. The refer ence range was not used to interpret this result as normal/abnormal . VENOUS BICARBONATE, See_Comment QUES [Au tomated message] CORD (test code = The system which generated 4554579313) this result tra nsmitted reference range : 12 - 29 mEq/L. The refe rence range was not used to interpret this result as normal/abnormal . [facility] TexasHIV 1/2 AG-AB WITH [id number] 02:36:20 Test Item Value Reference Range Interpretation Comments HIV Negative Negative Semi-quantitative (test code = 22330-2) LEAH (test code = Non-reactive for HIV-1 LEAH) antigen and HIV-1/HIV-2 antibodies. ?No laboratory evidence of HIV infection. ?Repeat in 2-4 weeks if acute HIV infection is suspected. [facility] TexasHepatitis B Surface [id number] 01:06:16 Test Item Value Reference Range Interpretation Comments HBsAg Semi-Quantitative (test code = Negative Negative 5195-3) [facility] TexasType and Screen - ONCE [id number] 00:26:39 Test Item Value Reference Range Interpretation Comments ABO & RH (test code A POSITIVE Performe d at [facility] = 20) Laboratory [facility] Blood Bank3 [facility] s [address]Yvpj Free: [phone] A No. [id number] IAT (test code = Negative Performed a t [facility] 1185) Laboratory [facility] Blood Bank3 [facility] [address]Eenp Free: [phone] A No. [id number] [facility] with [id number] 23:58:35 Test Item Value Reference Range Interpretation Comments WBC (test code = See_Comment [Automated message] 6690-2) The system [employer] generated this result transmitted ref erence range: 4.30 - 1 1.10 10*3/?L. The re ference range was not u sed to interpret this result as normal/abnor mal. RBC (test code = See_Comment [Automated message] 789-8) The system [employer] generated this result transmitted ref erence range: 3.93 - 5 .25 10*6/?L. The re ference range was not u sed to interpret this result as normal/abnor mal. HGB (test code = 11.9 g/dL 11.6-15 718-7) HCT (test code = 35.9 % 35.7-45.2 4544-3) MCV (test code = 85.1 fL 80.6-95.5 787-2) MCH (test code = 28.2 pg 25.9-32.8 785-6) MCHC (test code = 33.1 g/dL 31.6-35.1 786-4) RDW-SD (test code 43.6 fL 39-49.9 = 75892-8) RDW-CV (test code 14.1 % 12-15.5 = 788-0) PLT (test code = See_Comment [Automated message] 447-3) The system [employer] generated this result transmitted ref erence range: 166 - 35 8 10*3/?L. The re ference range was not u sed to interpret this result as normal/abnor mal. MPV (test code = 12.6 fL 9.5-12.9 26586-8) NRBC/100 WBC (test See_Comment [Automat ed message] code = 4882178038) [employer] which generated this result transmitted ref erence range: 0.0 - 10 .0 /100 WBCs. The refer ence range was not u sed to interpret this result as normal/abnor mal. NRBC x10^3 (test See_Comment [Automated message] code = 7604479486) The syste m which generated this result transmitted ref erence range: 10*3/?L. The reference range was not used to interpr et this result as normal/abnormal . GRAN MAT (NEUT) % 69.2 % (test code = 770-8) IMM GRAN % (test 0.20 % code = 2880959373) LYMPH % (test code 22.3 % = 736-9) MONO % (test code 7.8 % = 5905-5) EOS % (test code = 0.3 % 713-8) BASO % (test code 0.2 % = 706-2) GRAN MAT 6.13 10*3/uL 1.88-7.09 x10^3(ANC) (test code = 3212020496) IMM GRAN x10^3 0-0.06 (test code = 8164162295) LYMPH x10^3 (test 1.98 10*3/uL 1.32-3.29 code = 731-0) MONO x10^3 (test 0.69 10*3/uL 0.33-0.92 code = 742-7) EOS x10^3 (test 0.03 10*3/uL 0.03-0.39 code = 711-2) BASO x10^3 (test 0.01-0.07 code = 704-7) [facility] URINALYSIS W SPECIFIC [id number] 21:07:00 Test Item Value Reference Range Interpretation Comments POCT U SP GRAV (test code = 3255) . 1.005-1.025 POCT PH U (test code = 3254) . 5-8 POCT U LEUK EST (test code = 3263) . Negative - Negative POCT U NIT (test code = 3262) . Negative - Negative POCT U PROT (test code = 3259) Trace Negative - Negative POCT U GLU (test code = 3256) Neg Negative - Negative POCT U KETONE (test code = 3258) . Negative - Negative POCT U UROBILI (test code = 3260) . 0.2-1 POCT U BILI (test code = 3261) . Negative - Negative POCT U BLD (test code = 3257) . Negative - Negative POCT U COLOR (test code = 3266) POCT U APPEAR (test code = 3267) [facility]
--- NOTE | 2022-09-21 11:41 | EDPHYS ---
Physician Documentation [facility] Name: Gale Vázquez Age: 36 yrs Sex: Female : 1985 Arrival Date: 09/21/2022 Time: 11:24 Bed IW2 Private MD: ED Physician Froy Quezada HPI: 09/21 11:36 This 36 yrs old Female presents to ER via Ambulatory with complaints of Rash. jmm 11:36 The rash is located on the body diffusely. The rash can be described as macular, jmm papular. Onset: The symptoms/episode began/occurred gradually, 2 day(s) ago. Associated signs and symptoms: Pertinent positives: itching, Pertinent negatives: difficulty breathing, fever, swelling of lips, swelling of throat, swelling of tongue. Is a 36-year-old female with no chronic medical conditions presents emerged part with complaints of diffuse rash beginning this past Wednesday. Rash initially began around the groin and spread to the extremities, back, abdomen. Denies fever, vomiting. Denies any known infectious exposure. Denies any recent travel.. Historical: - Allergies: 11:32 No Known Allergies; aa5 - Home Meds: 11:32 None [Active]; aa5 - PMHx: 11:32 None; aa5 - Immunization history:: Adult Immunizations unknown. - Social history:: Smoking status: Patient denies any tobacco usage or history of. ROS: 11:36 Constitutional: Negative for fever, chills, and weight loss, Cardiovascular: Negative jmm for chest pain, palpitations, and edema, Respiratory: Negative for shortness of breath, cough, wheezing, and pleuritic chest pain. 11:36 Skin: Positive for rash. 11:36 All other systems are negative. Exam: 11:36 Constitutional: This is a well developed, well nourished patient who is awake, alert, jmm and in no acute distress. Head/Face: atraumatic. Eyes: EOMI, no conjunctival erythema appreciated ENT: Moist Mucus Membranes Neck: Trachea midline, Supple Chest/axilla: Normal chest wall appearance and motion. Cardiovascular: Regular rate and rhythm. No edema appreciated Respiratory: Normal respirations, no respiratory distress appreciated Abdomen/GI: Non distended Back: Normal ROM 11:36 MS/ Extremity: Moves all extremities, no obvious deformities appreciated, no edema noted to the lower extremities Neuro: Awake and alert Psych: Behavior is normal, Mood is normal, Patient is cooperative and pleasant 11:36 Skin: Diffuse maculopapular rash noted to the trunk, extremities. Vital Signs: 11:31 BP 110 / 66; Pulse 84; Resp 16 S; Temp 97.3(TE); Pulse Ox 98% on R/A; Weight 82.55 kg aa5 (R); Height 5 ft. 3 in. (160.02 cm) (R); 11:31 Body Mass Index 32.24 (82.55 kg, 160.02 cm) aa5 MDM: 11:29 Patient medically screened. [facility] 11:38 Differential diagnosis: Pityriasis rosea, hives, insect bites. Data reviewed: vital jmm signs, nurses notes. I considered the following discharge prescriptions or medication management in the emergency department Medications were administered in the Emergency Department. See MAR. Counseling: I had a detailed discussion with the patient and/or guardian regarding: the historical points, exam findings, and any diagnostic results supporting the discharge/admit diagnosis, the need for outpatient follow up, to return to the emergency department if symptoms worsen or persist or if there are any questions or concerns that arise at home. Admission orders: after a detailed discussion of the patient's condition and case, the admit orders are written by me. ED course: Patient is alert nontoxic in appearance in the ED. We will treat the patient for pruritus at home. Patient otherwise advised follow-up PCP otherwise given strict return precautions. Patient understood agrees plan of care.. Administered Medications: 11:41 Drug: Decadron (dexamethasone) 10 mg Route: IM; Site: right gluteus; aa5 Disposition Summary: 09/21/22 11:40 Discharge Ordered Location: Home [facility] Condition: Stable [facility] Diagnosis - Rash and other nonspecific skin eruption jmm Followup: jm - With: Private Physician - When: 2 - 3 days - Reason: Recheck today's complaints, Continuance of care, Re-evaluation by your physician Discharge Instructions: - Discharge Summary Sheet jm - Pityriasis Rosea jmm - Rash, Adult jmm Forms: - Medication Reconciliation Form jm - Thank You Letter jmm - Antibiotic Education jmm - Prescription Opioid Use jm Prescriptions: - Elimite 5 % Topical Cream - apply 1 application by TOPICAL route one time Wash after 12 hours.; 60 gram; [facility] Refills: 0, Product Selection Permitted - Hydroxyzine HCl 25 mg Oral Tablet - take 1 tablet by ORAL route every 6 hours As needed; 30 tablet; Refills: 0, [facility] Product Selection Permitted - Prednisone 20 mg Oral Tablet - take 3 tablets by ORAL route once daily for 5 days; 15 tablet; Refills: 0, [facility] Product Selection Permitted Signatures: Dimitri Lara PA PA jmm Calderon, Audri, RN RN aa5
--- NOTE | 2022-09-21 11:41 | ER ---
Nurse's Notes [facility] Name: Gale Vázquez Age: 36 yrs Sex: Female : 1985 Arrival Date: 09/21/2022 Time: 11:24 Bed IW2 Private MD: Diagnosis: Rash and other nonspecific skin eruption Presentation: 09/21 11:31 Chief complaint: Patient states: itching that began Wednesday night and rash all over. aa5 Coronavirus screen: At this time, the client does not indicate any symptoms associated with coronavirus-19. Ebola Screen: Patient denies travel to an Ebola-affected area in the 21 days before illness onset. Initial Sepsis Screen: Does the patient meet any 2 criteria? No. Patient's initial sepsis screen is negative. Does the patient have a suspected source of infection? No. Patient's initial sepsis screen is negative. Risk Assessment: Do you want to hurt yourself or someone else? Patient reports no desire to harm self or others. Onset of symptoms was September 2022. 11:31 Acuity: PATRICIA 4 aa5 11:31 Method Of Arrival: Ambulatory aa5 Historical: - Allergies: 11:32 No Known Allergies; aa5 - Home Meds: 11:32 None [Active]; aa5 - PMHx: 11:32 None; aa5 - Immunization history:: Adult Immunizations unknown. - Social history:: Smoking status: Patient denies any tobacco usage or history of. Vital Signs: 11:31 BP 110 / 66; Pulse 84; Resp 16 S; Temp 97.3(TE); Pulse Ox 98% on R/A; Weight 82.55 kg aa5 (R); Height 5 ft. 3 in. (160.02 cm) (R); 11:31 Body Mass Index 32.24 (82.55 kg, 160.02 cm) aa5 ED Course: 11:24 Patient arrived in ED. rg4 11:24 Dimitri Lara PA is PHCP. jmm 11:24 Froy Quezada MD is Attending Physician. jmm 11:31 Arm band placed on Patient placed in an exam room, on a stretcher. aa5 11:32 Triage completed. aa5 12:45 Romina Rodriges RN is Primary Nurse. iw Administered Medications: 11:41 Drug: Decadron (dexamethasone) 10 mg Route: IM; Site: right gluteus; aa5 Outcome: 11:40 Discharge ordered by MD. perez 12:45 Patient left the ED. iw Signatures: Dimitri Lara PA PA jmm Williams, Irene RN Ambreen Timmons RN RN Maryanne Modi rg4 Corrections: (The following items were deleted from the chart) 11:35 11:31 Pulse 84bpm; Resp 16bpm; Spontaneous; Pulse Ox 98% RA; Temp 97.3F Temporal; 82.55 aa5 kg Reported; Height 5 ft. 3 in. Reported; BMI: 32.2; aa5
[2022-09-21] MEDS ORDERED: dexAMETHasone 10 MG/ML VIAL ONE (11:43)
[2022-09-21 12:52] VITALS: BP 110/66; TEMP 97.3; O2SAT 98
== END 2022-09-21 12:45 | disposition home or self-care (01) ==
LOC: ER 11:22
DX: R21 Rash and other nonspecific skin eruption (principal)
CPT/HCPCS: 96372; 99282; J1100